=== PATIENT | female | born 1935 | race African-American/Black ===

== ENCOUNTER 2018-05-12 08:21 | Emergency (ER) | payer OTHER ==
[~2018-05-12] VITALS: Ht 165.1 cm; Wt 49.9 kg
[~2018-05-12 08:21] MED LIST: ATENOLOL25 MG; CIPRO500 MG PO; INDAPAMIDE2.5 MG; METRONIDAZOLE500 MG PO; OMEPRAZOLE20 M1 PO; RANITIDINE HCL75 MG PO; ZANTAC150 M3; ZESTRIL10 MG
== END 2018-05-12 14:21 | disposition home or self-care (01) ==
LOC: ER 08:21
DX: R42 Dizziness and giddiness (principal)

== ENCOUNTER 2019-02-13 09:51 | Emergency (ER) | payer OTHER ==
[~2019-02-13] VITALS: Ht 165.1 cm; Wt 71.2 kg
== END 2019-02-13 13:04 | disposition home or self-care (01) ==
LOC: ER 09:51
DX: M54.31 Sciatica, right side (principal)

== ENCOUNTER 2020-11-23 11:43 | Emergency (ER) | payer OTHER ==
[~2020-11-23] VITALS: Ht 157.5 cm; Wt 73.5 kg
[2020-11-23] MEDS ORDERED: LASIX20 MG PO (12:01)
[2020-11-23] MEDS ORDERED: TOPROL XL25 M1 PO (12:01)
== END 2020-11-23 15:37 | disposition home or self-care (01) ==
LOC: ER 11:43
DX: I16.0 Hypertensive urgency (principal); I10 Essential (primary) hypertension

== ENCOUNTER 2021-07-02 09:00 | Outpatient (CLI) | payer OTHER ==
[~2021-07-02 09:00] MED LIST changes: +LASIX20 MG PO; +TOPROL XL25 M1 PO
== END 2021-07-02 09:30 | disposition home or self-care (01) ==
LOC: PPH VACUNA 09:00
PROVIDERS: ATTEND Emergency Medicine Pediatric Emergency Medicine
DX: Z23 Encounter for immunization (principal)

== ENCOUNTER 2022-11-06 21:28 | Emergency (ER) | payer OTHER ==
[~2022-11-06] VITALS: Ht 157.5 cm; Wt 70.8 kg
[2022-11-06] MEDS ORDERED: TENORMIN25 MG PO (21:54)
[2022-11-06] MEDS ORDERED: INDAPAMIDE2.5 MG PO (21:55)
[2022-11-06] MEDS ORDERED: ZESTORETIC 20-1 EACH PO (21:56)
[2022-11-06] MEDS ORDERED: ATENOLOL25 MG PO (21:56)
== END 2022-11-07 02:46 ==
LOC: ER 21:28
DX: I10 Essential (primary) hypertension (principal); R42 Dizziness and giddiness; Z91.013 Allergy to seafood

== ENCOUNTER 2023-09-25 15:01 | Emergency (ER) | payer OTHER ==
[~2023-09-25] VITALS: Ht 157.5 cm; Wt 70.3 kg
[~2023-09-25 15:01] MED LIST changes: +ATENOLOL25 MG PO; +INDAPAMIDE2.5 MG PO; +TENORMIN25 MG PO; +ZESTORETIC 20-1 EACH PO
[2023-09-25] MEDS ORDERED: ACETAMINOPHEN 500 MG GEL..CAP PO ONE (16:45)
[2023-09-25] MEDS ORDERED: DEXAMETHASONE SODIUM PHOSPHATE 4 MG/ML VIAL IM ONE (16:45)
[2023-09-25] MEDS ORDERED: TYLENOL ARTHRI650 MG PO (20:23)
== END 2023-09-25 20:53 ==
LOC: ER 15:02
DX: S53.195A Other dislocation of left ulnohumeral joint, initial encounter (principal); W19.XXXA Unspecified fall, initial encounter; Y93.89 Activity, other specified; Y92.098 Other place in other non-institutional residence as the place of occurrence of the external cause; Y99.8 Other external cause status; M79.602 Pain in left arm; I10 Essential (primary) hypertension; Z91.013 Allergy to seafood